=== PATIENT | female | born 1930 | race Caucasian/White ===

== ENCOUNTER 2016-11-11 13:44 | Inpatient (IN) | payer OTHER ==
[~2016-11-11] VITALS: Ht 162.6 cm; Wt 57.5 kg
[~2016-11-11 13:44] MED LIST: APRESOLINE25 MG PO; BESIVANCE5 ML; CEFTIN500 MG PO; Ceftin PO; ECONOPRED PLUS10 ML; EYE DROPS; KETOROLAC TROMET5 ML; LISINOPRIL10 MG PO; LISINOPRIL5 MG PO; LOPRESSOR25 MG PO; LORAZEPAM1 MG PO; METFORMIN HCL500 M1 PO; PANTOPRAZOLE SO40 MG PO; TRILIPIX135 MG PO; Zestril,Prinivil PO
[2016-11-11 14:26] LABS: EOSINOPHIL (%) 0 % (0-5); HEMATOCRIT 37.2 % (36.0-46.0); IMMATURE GRANULOCYTE (%) 0.5 % (0.0-0.7); IMMATURE GRANULOCYTE COUNT 0.1 K/uL; INSTRUMENT ABS NEUTROPHIL CT 7.2 K/uL; LYMPHOCYTE COUNT 1.9 K/uL (1.0-2.8); MCH 28.7 PG (29.0-34.0); MCHC 34.1 G/DL (30.0-36.0); MCV 84.2 FL (83-99); MEAN PLAT.VOLUME 8.6 uM^3 (9.5-12.4); MONOCYTE (%) 6.2 % (3-12); MONOCYTE COUNT 0.6 K/uL (0-0.8); NEUTROPHIL (%) 73.8 % (45-76); NEUTROPHIL COUNT 7.2 K/uL (1.8-6.4); PLATELET COUNT 379 K/uL (156-360); RBC DIS.WIDTH-CV 14.7 % (11.8-14.6); RBC DIS.WIDTH-SD 45.1 % (39-53); RED BLOOD COUNT 4.42 M/uL (3.80-5.20); WHITE BLOOD COUNT 9.7 K/uL (4.1-10.2)
[2016-11-11 14:34] LABS: CHLORIDE 94 mEq/L (99-109); POTASSIUM 3.3 mEq/L (3.7-5.4); SODIUM 127 mEq/L (136-147)
[2016-11-11 14:36] LABS: GLUCOSE 138 mg/dL (70-99)
[2016-11-11 14:37] LABS: ANION GAP 12 MEQ/L (2-14)
[2016-11-11 14:40] LABS: GFR ESTIMATE (CALCULATED) > 59 mL/min/
[2016-11-11 14:41] LABS: UREA NITROGEN (BUN) 19 mg/dL (9-23)
[2016-11-11 14:46] LABS: TROP-I INTERPRETATION NEGATIVE; TROPONIN-I 0.13 ng/mL (0.0-0.30)
[2016-11-11 17:26] LABS: ADD MIUA? YES; BILIRUBIN NEGATIVE; BLOOD SMALL; COLOR YELLOW ((YELLOW)); GLUCOSE (STRIP) NEGATIVE; KETONES NEGATIVE; LEUKOCYTES SMALL; NITRITE NEGATIVE; PROTEIN (STRIP) 100; SPECIFIC GRAVITY 1.015 (1.000-1.030); UROBILINOGEN 0.2 MG/DL (0.2-1.0)
[2016-11-11 17:53] LABS: CASTS NONE SEEN /LPF; EPITHELIAL CELLS 2+ /HPF; MUCUS NONE SEEN /LPF; RED BLOOD CELLS 0-5 /HPF (0-5); WHITE BLOOD CELLS 30-40 /HPF (0-5)
[2016-11-11 17:54] LABS: BACTERIA 4+ /HPF; UCUL ADDED? YES
[2016-11-11] MEDS ORDERED: METOPROLOL TART50 MG PO (18:42)
[2016-11-11] MEDS ORDERED: CLARITIN,ALAVAR10 MG PO (18:42)
[2016-11-11 21:07] LABS: MAGNESIUM 1.2 mg/dL (1.3-2.7)
[2016-11-11 21:11] LABS: TOTAL BILIRUBIN 0.8 mg/dL (0.0-1.0)
[2016-11-11 21:12] LABS: ALKALINE PHOSPHATASE 35 IU/L (3-129)
[2016-11-11 21:14] LABS: DIRECT BILIRUBIN 0.4 mg/dL (0.0-0.3)
[2016-11-11 22:27] VITALS: BP 149/69
[2016-11-12 03:45] VITALS: BP 114/56
[2016-11-12 03:51] LABS: TROP-I INTERPRETATION NEGATIVE
[2016-11-12 06:50] LABS: MCH 28.5 PG (29.0-34.0); MCHC 32.8 G/DL (30.0-36.0); RBC DIS.WIDTH-CV 15.3 % (11.8-14.6); RBC DIS.WIDTH-SD 47.9 % (39-53); RED BLOOD COUNT 3.68 M/uL (3.80-5.20)
[2016-11-12 07:14] LABS: INTER. NORMALIZED RATIO 1.2; PROTHROMBIN TIME 11.9 (9.2-11.2); PTT 25.4 (25-32)
[2016-11-12 07:16] LABS: ANION GAP 7 MEQ/L (2-14); CHLORIDE 100 MEQ/L (99-109); GFR ESTIMATE (CALCULATED) 45 mL/min/; GLUCOSE 109 mg/dL (70-99); MAGNESIUM 3.2 mg/dl (1.3-2.7); POTASSIUM 3.7 MEQ/L (3.7-5.4); SAMPLE HEMOLYSIS CHECK 0; SAMPLE ICTERIC CHECK 0; SAMPLE LIPEMIA CHECK 0; SODIUM 132 MEQ/L (136-147)
[2016-11-12 07:17] LABS: UREA NITROGEN (BUN) 29 mg/dL (9-23)
[2016-11-12 07:23] LABS: WHITE BLOOD COUNT 5.9 K/uL (4.1-10.2)
[2016-11-12 07:40] VITALS: BP 166/74
[2016-11-12 09:24] LABS: MEAN PLAT.VOLUME 9.2 uM^3 (9.5-12.4); PLAT.SUFFICIENCY ADEQUATE
[2016-11-12 09:26] LABS: PLATELET COUNT 261 K/uL (156-360)
[2016-11-12 11:40] VITALS: BP 143/68
[2016-11-12 15:40] VITALS: BP 138/64
[2016-11-12 19:37] VITALS: BP 173/77
[2016-11-12 23:59] VITALS: BP 172/83
[2016-11-13] VITALS (7 sets, daily range): BP systolic 152–181; BP diastolic 68–86
[2016-11-13 07:09] LABS: BASOPHIL COUNT 0.1 K/uL (0-0.1); EOSINOPHIL (%) 1.7 % (0-5); EOSINOPHIL COUNT 0.1 K/uL (0-0.3); HEMATOCRIT 33.6 % (36.0-46.0); IMMATURE GRANULOCYTE (%) 0.6 % (0.0-0.7); INSTRUMENT ABS NEUTROPHIL CT 2.6 K/uL; LYMPHOCYTE COUNT 1.9 K/uL (1.0-2.8); MCH 28.6 PG (29.0-34.0); MCHC 32.7 G/DL (30.0-36.0); MCV 87.5 FL (83-99); MEAN PLAT.VOLUME 9.3 uM^3 (9.5-12.4); MONOCYTE (%) 10.3 % (3-12); MONOCYTE COUNT 0.5 K/uL (0-0.8); NEUTROPHIL (%) 49.8 % (45-76); NEUTROPHIL COUNT 2.6 K/uL (1.8-6.4); PLATELET COUNT 277 K/uL (156-360); RBC DIS.WIDTH-CV 15.7 % (11.8-14.6); RBC DIS.WIDTH-SD 49.5 % (39-53); RED BLOOD COUNT 3.84 M/uL (3.80-5.20); WHITE BLOOD COUNT 5.2 K/uL (4.1-10.2)
[2016-11-13 07:30] LABS: ANION GAP 8 MEQ/L (2-14); CHLORIDE 105 MEQ/L (99-109); GFR ESTIMATE (CALCULATED) 56 mL/min/; GLUCOSE 108 mg/dL (70-99); POTASSIUM 3.6 MEQ/L (3.7-5.4); SAMPLE HEMOLYSIS CHECK 0; SAMPLE ICTERIC CHECK 0; SAMPLE LIPEMIA CHECK 0; UREA NITROGEN (BUN) 25 mg/dL (9-23)
[2016-11-13 07:32] LABS: MAGNESIUM 2.1 mg/dl (1.3-2.7); SODIUM 140 MEQ/L (136-147)
[2016-11-14 04:57] VITALS: BP 152/69
[2016-11-14 07:00] VITALS: BP 180/90
[2016-11-14] MEDS ORDERED: KEFLEX250 MG PO (09:53)
[2016-11-14 10:33] VITALS: BP 182/60
[2016-11-14] MEDS ORDERED: HYDRALAZINE HCL50 MG PO (10:34)
[2016-11-15] MEDS ORDERED: ZOFRAN8 MG PO (02:28)
== END 2016-11-14 11:30 | disposition home health service (06) | DRG 872 ==
LOC: EME 13:44 → 2EAST 20:47 → EDOF 20:47 → 2EAST 22:07
PROVIDERS: Emergency Medicine; Hospitalist; Internal Medicine; Physician Assistant Medical
DX: A41.9 Sepsis, unspecified organism (principal); N39.0 Urinary tract infection, site not specified; I16.0 Hypertensive urgency; E86.0 Dehydration; E87.2 Acidosis; E83.42 Hypomagnesemia; I95.9 Hypotension, unspecified; E87.6 Hypokalemia; E87.1 Hypo-osmolality and hyponatremia; F41.1 Generalized anxiety disorder; E78.5 Hyperlipidemia, unspecified; E11.9 Type 2 diabetes mellitus without complications; K21.9 Gastro-esophageal reflux disease without esophagitis; E87.5 Hyperkalemia; R41.0 Disorientation, unspecified; K80.20 Calculus of gallbladder without cholecystitis without obstruction; K57.30 Diverticulosis of large intestine without perforation or abscess without bleeding; I70.90 Unspecified atherosclerosis; K22.10 Ulcer of esophagus without bleeding; B96.20 Unspecified Escherichia coli [E. coli] as the cause of diseases classified elsewhere; Z85.89 Personal history of malignant neoplasm of other organs and systems; Z90.710 Acquired absence of both cervix and uterus
CPT/HCPCS: 71010; 74176; 80048; 80076; 81003; 82948; 83605; 83735; 84484; 85025; 85027; 85610; 85730; 87040; 87077; 87086; 87186; 93005; 97530 GO; 99281; 99285; J0360; J0696; J1644; J1815; J2060; J2405; J3475; J7030; J7050; J7120; S0028

== ENCOUNTER 2016-11-14 22:54 | Emergency (ER) | payer OTHER ==
[~2016-11-14] VITALS: Ht 162.6 cm; Wt 59.3 kg
[~2016-11-14 22:54] MED LIST changes: +CLARITIN,ALAVAR10 MG PO; +HYDRALAZINE HCL50 MG PO; +KEFLEX250 MG PO; +METOPROLOL TART50 MG PO
[2016-11-14 23:32] LABS: HEMATOCRIT 35.9 % (36.0-46.0); MCH 28.7 PG (29.0-34.0); MCHC 32.9 G/DL (30.0-36.0); MCV 87.3 FL (83-99); MEAN PLAT.VOLUME 9.2 uM^3 (9.5-12.4); PLATELET COUNT 335 K/uL (156-360); RBC DIS.WIDTH-CV 15.7 % (11.8-14.6); RBC DIS.WIDTH-SD 50.3 % (39-53); RED BLOOD COUNT 4.11 M/uL (3.80-5.20); WHITE BLOOD COUNT 7.8 K/uL (4.1-10.2)
[2016-11-14 23:41] LABS: SODIUM 139 mEq/L (136-147)
[2016-11-14 23:42] LABS: CHLORIDE 106 mEq/L (99-109)
[2016-11-14 23:43] LABS: GLUCOSE 143 mg/dL (70-99)
[2016-11-14 23:44] LABS: ANION GAP 10 MEQ/L (2-14)
[2016-11-14 23:47] LABS: GFR ESTIMATE (CALCULATED) > 59 mL/min/
[2016-11-14 23:48] LABS: UREA NITROGEN (BUN) 20 mg/dL (9-23)
[2016-11-14 23:55] LABS: TROP-I INTERPRETATION NEGATIVE; TROPONIN-I < 0.01 ng/mL (0.0-0.30)
[2016-11-15 00:27] LABS: MAGNESIUM 1.6 mg/dL (1.3-2.7)
[2016-11-15 00:46] LABS: ADD MIUA? YES; BILIRUBIN NEGATIVE; BLOOD NEGATIVE; COLOR YELLOW ((YELLOW)); GLUCOSE (STRIP) NEGATIVE; KETONES NEGATIVE; LEUKOCYTES MODERATE; NITRITE NEGATIVE; PROTEIN (STRIP) 30; SPECIFIC GRAVITY 1.013 (1.000-1.030); UROBILINOGEN 0.2 MG/DL (0.2-1.0)
[2016-11-15 00:51] LABS: BACTERIA NONE SEEN /HPF; EPITHELIAL CELLS RARE /HPF; HYALINE CASTS 0-5 /LPF; MUCUS TRACE /LPF; RED BLOOD CELLS 0-5 /HPF (0-5); UCUL ADDED? NO; WHITE BLOOD CELLS 20-30 /HPF (0-5)
[2016-11-15 02:22] VITALS: BP 186/68
[2016-11-15] MEDS ORDERED: ZOFRAN8 MG PO (02:28)
== END 2016-11-15 02:49 | disposition home or self-care (01) ==
LOC: EME 22:54
PROVIDERS: Emergency Medicine
DX: R00.2 Palpitations (principal); I10 Essential (primary) hypertension; N30.90 Cystitis, unspecified without hematuria; E78.5 Hyperlipidemia, unspecified; K21.9 Gastro-esophageal reflux disease without esophagitis; F32.9 Major depressive disorder, single episode, unspecified; F41.9 Anxiety disorder, unspecified
CPT/HCPCS: 70450; 71020; 80048; 81003; 83735; 84100; 84484; 85027; 93005; 99281; 99285

== ENCOUNTER 2017-09-13 14:28 | Inpatient (IN) | payer OTHER ==
[~2017-09-13] VITALS: Ht 160 cm; Wt 52.5 kg
[~2017-09-13 14:28] MED LIST changes: +ARICEPT5 MG PO; +ZOFRAN8 MG PO
[2017-09-13 15:28] LABS: BASOPHIL (%) 0.1 % (0-1); EOSINOPHIL (%) 0 % (0-5); HEMATOCRIT 38.4 % (36.0-46.0); HEMOGLOBIN 12.7 G/DL (11.9-15.5); IMMATURE GRANULOCYTE (%) 0.3 % (0.0-0.7); LYMPHOCYTE (%) 7.4 % (15-42); LYMPHOCYTE COUNT 0.5 K/uL (1.0-2.8); MCH 28.9 PG (29.0-34.0); MCHC 33.1 G/DL (30.0-36.0); MCV 87.3 FL (83-99); MONOCYTE (%) 2.6 % (3-12); MONOCYTE COUNT 0.2 K/uL (0-0.8); NEUTROPHIL (%) 89.6 % (45-76); NEUTROPHIL COUNT 6.5 K/uL (1.8-6.4); PLATELET COUNT 288 K/uL (156-360); RBC DIS.WIDTH-CV 15.5 % (11.8-14.6); RBC DIS.WIDTH-SD 50.1 % (39-53); WHITE BLOOD COUNT 7.3 K/uL (4.1-10.2)
[2017-09-13 15:37] LABS: ALBUMIN 3.7 g/dL (3.2-4.8); INTER. NORMALIZED RATIO 1.2
[2017-09-13 15:38] LABS: CHLORIDE 101 mEq/L (99-109); POTASSIUM 3.3 mEq/L (3.7-5.4); SODIUM 140 mEq/L (136-147)
[2017-09-13 15:40] LABS: GLUCOSE 173 mg/dL (70-99); TOTAL PROTEIN 7.1 g/dL (6.4-8.3)
[2017-09-13 15:42] LABS: TOTAL BILIRUBIN 0.6 mg/dL (0.0-1.0)
[2017-09-13 15:43] LABS: ALKALINE PHOSPHATASE 60 IU/L (3-129)
[2017-09-13 15:44] LABS: CREATININE 0.7 mg/dL (0.6-1.3); GFR ESTIMATE (CALCULATED) > 59 mL/min/
[2017-09-13 15:45] LABS: AST (GOT) 33 IU/L (2-34); UREA NITROGEN (BUN) 16 mg/dL (9-23)
[2017-09-13 15:46] LABS: ALT (GPT) 15 IU/L (3-49)
[2017-09-13 15:47] LABS: CREATINE KINASE 56 IU/L (1-294)
[2017-09-13 15:49] LABS: TROP-I INTERPRETATION NEGATIVE
[2017-09-13 16:20] LABS: APPEARANCE CLEAR ((CLEAR)); BILIRUBIN NEGATIVE; BLOOD NEGATIVE; COLOR STRAW ((YELLOW)); GLUCOSE (STRIP) 50; KETONES 5; LEUKOCYTES NEGATIVE; NITRITE NEGATIVE; PROTEIN (STRIP) 100; SPECIFIC GRAVITY 1.011 (1.000-1.030); UROBILINOGEN 0.2 MG/DL (0.2-1.0)
[2017-09-13 16:26] LABS: BACTERIA NONE SEEN /HPF; EPITHELIAL CELLS RARE /HPF; MUCUS TRACE /LPF; WHITE BLOOD CELLS 0-5 /HPF (0-5)
[2017-09-13] MEDS ORDERED: SYNTHROID50 MCG PO (17:48)
[2017-09-13] MEDS ORDERED: CELEXA10 MG PO (17:49)
[2017-09-13] MEDS ORDERED: ZYRTEC10 M3 PO (17:49)
[2017-09-13] MEDS ORDERED: PRESERVISION A1 EAC2 PO (17:49)
[2017-09-13] MEDS ORDERED: ZESTRIL10 MG PO (17:49)
[2017-09-13 20:23] LABS: TROP-I INTERPRETATION NEGATIVE; TROPONIN-I 0.23 ng/mL (0.0-0.30)
[2017-09-13 20:45] VITALS: BP 178/82
[2017-09-14] VITALS (7 sets, daily range): BP systolic 143–188; BP diastolic 65–88
[2017-09-14 03:08] LABS: TROP-I INTERPRETATION NEGATIVE; TROPONIN-I 0.16 ng/mL (0.0-0.30)
[2017-09-14 05:34] LABS: HEMATOCRIT 32.9 % (36.0-46.0); MCH 27.9 PG (29.0-34.0); MCHC 31.9 G/DL (30.0-36.0); MCV 87.5 FL (83-99); PLATELET COUNT 254 K/uL (156-360); RBC DIS.WIDTH-CV 15.8 % (11.8-14.6); RBC DIS.WIDTH-SD 50.8 % (39-53); RED BLOOD COUNT 3.76 M/uL (3.80-5.20); WHITE BLOOD COUNT 6.3 K/uL (4.1-10.2)
[2017-09-14 05:35] LABS: HEMOGLOBIN 10.5 G/DL (11.9-15.5)
[2017-09-14 05:56] LABS: CHLORIDE 100 MEQ/L (99-109); CREATININE 0.9 MG/DL (0.6-1.3); GFR ESTIMATE (CALCULATED) > 59 mL/min/; POTASSIUM 3.9 MEQ/L (3.7-5.4); SODIUM 139 MEQ/L (136-147); UREA NITROGEN (BUN) 20 mg/dL (9-23)
[2017-09-14 05:57] LABS: GLUCOSE 85 mg/dL (70-99)
[2017-09-15 04:15] VITALS: BP 186/82
[2017-09-15 07:49] VITALS: BP 210/90
[2017-09-15 11:42] VITALS: BP 170/80
[2017-09-15 15:39] VITALS: BP 178/94
[2017-09-15 20:20] VITALS: BP 162/70
[2017-09-15 23:44] VITALS: BP 158/68
[2017-09-16 03:38] VITALS: BP 190/62
[2017-09-16 05:23] LABS: BASOPHIL (%) 0.3 % (0-1); EOSINOPHIL (%) 3.2 % (0-5); EOSINOPHIL COUNT 0.2 K/uL (0-0.3); HEMOGLOBIN 11.7 G/DL (11.9-15.5); IMMATURE GRANULOCYTE (%) 0.3 % (0.0-0.7); LYMPHOCYTE (%) 29.8 % (15-42); LYMPHOCYTE COUNT 1.8 K/uL (1.0-2.8); MCH 28.4 PG (29.0-34.0); MCHC 32.5 G/DL (30.0-36.0); MCV 87.4 FL (83-99); MONOCYTE (%) 9.7 % (3-12); MONOCYTE COUNT 0.6 K/uL (0-0.8); NEUTROPHIL (%) 56.7 % (45-76); NEUTROPHIL COUNT 3.4 K/uL (1.8-6.4); PLATELET COUNT 242 K/uL (156-360); RBC DIS.WIDTH-CV 15.8 % (11.8-14.6); RBC DIS.WIDTH-SD 50.4 % (39-53); RED BLOOD COUNT 4.12 M/uL (3.80-5.20)
[2017-09-16 05:47] LABS: CHLORIDE 102 MEQ/L (99-109); CREATININE 0.8 MG/DL (0.6-1.3); GFR ESTIMATE (CALCULATED) > 59 mL/min/; GLUCOSE 104 mg/dL (70-99); POTASSIUM 4.3 MEQ/L (3.7-5.4); SODIUM 137 MEQ/L (136-147); UREA NITROGEN (BUN) 23 mg/dL (9-23)
[2017-09-16 09:00] VITALS: BP 159/70
[2017-09-16 12:00] VITALS: BP 129/74
[2017-09-16 18:08] VITALS: BP 149/67
[2017-09-16 18:42] VITALS: BP 123/57
[2017-09-16] MEDS ORDERED: METOPROLOL TART50 MG PO (19:48)
[2017-09-16] MEDS ORDERED: ZESTRIL10 MG PO (19:50)
[2017-09-16] MEDS ORDERED: AMLODIPINE BESYL5 MG PO (19:51)
[2017-09-16] MEDS ORDERED: ASPIR-LOW81 MG PO (19:51)
== END 2017-09-16 21:26 | disposition home or self-care (01) | DRG 305 ==
LOC: EME 14:28 → EDOF 18:04 → 4EAST 18:04 → ENRESERV 18:06 → 4EAST 20:44
PROVIDERS: Emergency Medicine; Family Medicine Sports Medicine
DX: I10 Essential (primary) hypertension (principal); R74.8 Abnormal levels of other serum enzymes; F41.1 Generalized anxiety disorder; E78.5 Hyperlipidemia, unspecified; E87.6 Hypokalemia; F03.90 Unspecified dementia, unspecified severity, without behavioral disturbance, psychotic disturbance, mood disturbance, and anxiety; R41.82 Altered mental status, unspecified; Z91.81 History of falling; H35.30 Unspecified macular degeneration; E11.9 Type 2 diabetes mellitus without complications; K21.0 Gastro-esophageal reflux disease with esophagitis; K29.70 Gastritis, unspecified, without bleeding; M19.90 Unspecified osteoarthritis, unspecified site; Z87.440 Personal history of urinary (tract) infections; Z85.828 Personal history of other malignant neoplasm of skin; Z90.710 Acquired absence of both cervix and uterus
CPT/HCPCS: 70450; 72125; 80048; 80053; 81003; 82140; 82550; 84484; 85025; 85027; 85610; 93005; 94799; 97530 GP; 99281; 99285; J0360; J1650; J2405